=== PATIENT | female | born 1965 | race African-American/Black ===

== ENCOUNTER 2025-04-07 16:09 | Emergency (ER) | payer MEDICARE, MEDICAID ==
[~2025-04-07] VITALS: Ht 162.6 cm; Wt 95.0 kg
[~2025-04-07 16:09] MED LIST: ALBU18HF2; ALBU2.5V13 IH; AMOX-421 PO; BACL-141; CARI250T; FLU45SYR; GABA-1180 PO; HYDR-3927; IBUP-779; LORA1TAB; P20
[2025-04-07 16:11] VITALS: O2SAT 98
[2025-04-07 16:12] VITALS: BP 121/69; PULSE 80; RESP 18; TEMP 36.6; O2SAT 97
[2025-04-07] MEDS: KETOROLAC 30MG/ML VIAL IM ONE (18:08)
[2025-04-07] MEDS: ACETAMINOPHEN 325MG TABLET PO ONE (18:08)
[2025-04-07] MEDS ORDERED: ACET-2708 MT (19:35)
[2025-04-07] MEDS ORDERED: KETO10TA2 MT (19:35)
== END 2025-04-07 20:10 | disposition home or self-care (01) ==
LOC: ER 16:09
DX: M19.012 Primary osteoarthritis, left shoulder (principal); M19.042 Primary osteoarthritis, left hand; E11.9 Type 2 diabetes mellitus without complications; J45.909 Unspecified asthma, uncomplicated; Z98.890 Other specified postprocedural states; Z79.899 Other long term (current) drug therapy; Z88.0 Allergy status to penicillin; W01.0XXA Fall on same level from slipping, tripping and stumbling without subsequent striking against object, initial encounter; Y93.89 Activity, other specified; Y92.89 Other specified places as the place of occurrence of the external cause; Y99.8 Other external cause status
CPT/HCPCS: 99284; 29505; 73030; 73110; 73130; 29125; J1885